=== PATIENT | male | born 1945 | race Caucasian/White ===

== ENCOUNTER 2017-09-16 10:13 | Inpatient (IN) ==
[2017-09-16] MEDS ORDERED: Ipratropium/Albuterol Neb 3 ML IH ONE (10:19)
[2017-09-16 10:42] LABS: Basophils % 0.4 %; Eosinophils % 0.1 %; Hematocrit 40.9 % (37.5-50.1); Hemoglobin 13.6 g/dL (12.9-16.9); Immature Granulocytes % 0.3 % (0-4); Lymphocytes % 13.4 %; Mean Corpuscular HGB Conc 33.3 g/dL (31.6-35.5); Mean Corpuscular Hemoglobin 29.4 pg (28.0-33.3); Mean Corpuscular Volume 88.3 fL (83.0-100.0); Mean Platelet Volume 8.8 fL (9.4-12.4); Monocytes # 0.9 K/mcL (0.0-1.3); Monocytes % 12.2 %; Neutrophils # 5.4 K/mcL (1.6-8.9); Platelet Count 212 K/mcL (140-400); Red Blood Count 4.63 M/mcL (4.19-5.50); Red Cell Distribution Width 13.1 % (11.5-14.5); Segmented Neutrophils % 73.6 %
[2017-09-16 10:58] LABS: BUN/Creatinine Ratio 11 (6-26); Blood Urea Nitrogen 15 mg/dL (8-23); Calcium 8.7 mg/dL (8.6-10.3); Carbon Dioxide 25 mEq/L (23-29); Chloride 99 mEq/L (98-107); Glucose 90 mg/dL (70-105); Osmolality,Calculated 268 (280-300); Sodium 129 mEq/L (136-145); eGFR For African Americans > 60 (> 60); eGFR For Non-African Americans 50 (> 60)
[2017-09-16] MEDS ORDERED: methylPREDNISolone 125 MG/2 ML VIAL IVP ONE (11:42)
--- NOTE | 2017-09-16 11:42 | Emergency Department Note ---
Disposition Clinical Impression: Pulmonary vascular congestion, Hypoxia, Elevated troponin, Hyponatremia Disposition: Admitted As Inpatient Condition: Good Referrals: Constantino Napier MD [Primary Care Provider] - Forms: ED Satisfaction Letter SOB HPI - General Chief Complaint: ED Shortness of Breath/Dyspnea Stated Complaint: Weakness,SOB Time Seen by Provider: 09/16/17 10:16 Source: EMS Limitations: no limitations Nursing Notes Reviewed: Yes Vital Signs Reviewed: Yes - History of Present Illness Patient presents for evaluation of cough, shortness of breath and diaphoresis. Patient has reported cough 2 weeks. No fevers or chills. Patient had an episode today where he became diaphoretic. His initial pulse ox was 91%. Does not have COPD or other previous pulmonary history. Does not wear home oxygen. Presents to the ER complaining of cough that has been nonproductive in nature. His initial pulse ox was again 91% and the patient was placed on 3 L nasal cannula with improvement to 97%. Patient has wheezing diffusely. Breathing treatments ordered. Patient will undergo further investigation of possible pneumonia as well as other possible etiologies of wheezing and shortness of breath. Currently does not smoke but does have a significant smoking history. - Related Data Home Medications Medication Instructions Recorded Confirmed Aspirin 81 mg PO DAILY 12/26/16 12/26/16 Carbidopa/Levodopa [Carbidopa-Levo 1 each PO TID 12/26/16 12/26/16 ER 25-100 Tab] Lisinopril [Zestril] 40 mg PO DAILY 12/26/16 12/26/16 Omeprazole [PriLOSEC] 20 mg PO DAILY 12/26/16 12/26/16 Tamsulosin [Flomax] 0.4 mg PO DAILY 12/26/16 12/26/16 Tizanidine HCl 2 mg PO BID 12/26/16 12/26/16 Cyanocobalamin (B-12) [Vitamin B12] 1,000 mcg IM QMONTH 09/16/17 09/16/17 Ferrous Sulfate [Iron] 325 mg PO DAILY 09/16/17 09/16/17 Warfarin [Coumadin] 2 mg PO QPM 09/16/17 09/16/17 Previous Rx's Medication Instructions Recorded LORazepam [Ativan] 1 mg PO HS #14 tablet 12/26/16 Allergies Allergy/AdvReac Type Severity Reaction Status Date / Time No Known Allergies Allergy Verified 07/01/16 23:57 Constitutional: Reports: weakness, other (diaphoresis). Denies: fever, chills Cardiovascular: Reports: dyspnea on exertion. Denies: chest pain Respiratory: Reports: cough, wheezes Gastrointestinal: Denies: abdominal pain, nausea, vomiting Integumentary: Denies: rash, abrasion, lesions Endocrine: Reports: fatigue Past Medical History - Past Medical History Medical history: Reports: arthritis, GERD, hypertension, other Surgical history: Reports: non-contributory Psychiatric history: Reports: no psych history - Social History Smoking Status: Former smoker Alcohol use: Reports: none Drug use: Reports: none Physical Exam General: Mild tachypnea Head: Normocephalic Atraumatic Eyes: PERRL, EOMI ENT: Airway patent, no stridor Neck: supple, no meningismus Chest: Wheezing bilaterally Cardiac: Regular rate and rhythm, no murmurs, rubs or gallops Abdomen: soft, nontender, nondistended; no guarding, rebound, or tenderness to percussion Musculoskeletal: Calves symmetric, nontender, no palpable cord Skin: No rash, normal skin tone Neuro: Alert and Oriented to person, place, but not time. Patient has some mild facial droop that is chronic. Reported weakness of the right upper extremity that is chronic however 5 out of 5 strength throughout all extremities. - General Limitations: no limitations General appearance: alert, in no apparent distress Course - Reevaluation(s) Reevaluation #1: Patient with minimal improvement after DuoNeb's. Patient will be given steroids for concern for possible COPD. Patient will need further monitoring of his hypoxia, pulmonary vascular congestion, hyponatremia with admission to the hospitalist service. - Consultations Consultation #1: Discussed with Dr. Paredes. Pt accepted for admission. Vital Signs Temperature 99.5 F 09/16/17 10:17 Pulse Rate 79 09/16/17 10:17 Respiratory Rate 20 09/16/17 10:17 Blood Pressure 108/72 09/16/17 10:17 O2 Sat by Pulse Oximetry 96 09/16/17 10:17 Temperature 99.5 F 09/16/17 10:17 Pulse Rate 86 09/16/17 12:09 Respiratory Rate 20 09/16/17 12:09 Blood Pressure 117/62 09/16/17 12:09 O2 Sat by Pulse Oximetry 94 09/16/17 12:09 Oxygen Delivery Oxygen Delivery Nasal Cannula Shortness of Breath/Dyspnea - Lab Data Result diagrams: 09/16/17 10:31 09/16/17 10:31 Lab Results 09/16/17 09/16/17 09/16/17 Range/Units 10:31 10:31 10:31 WBC 7.3 (4.3-11.1) K/mcL RBC 4.63 (4.19-5.50) M/mcL Hgb 13.6 (12.9-16.9) g/dL Hct 40.9 (37.5-50.1) % MCV 88.3 (83.0-100.0) fL MCH 29.4 (28.0-33.3) pg MCHC 33.3 (31.6-35.5) g/dL RDW 13.1 (11.5-14.5) % Plt Count 212 (140-400) K/mcL MPV 8.8 L (9.4-12.4) fL Immature Gran % 0.3 (0-4) % Seg Neutrophils % 73.6 % Lymphocytes % 13.4 % Monocytes % 12.2 % Eosinophils % 0.1 % Basophils % 0.4 % Neutrophils # 5.4 (1.6-8.9) K/mcL Lymphocytes # 1.0 (0.6-4.6) K/mcL Monocytes # 0.9 (0.0-1.3) K/mcL Eosinophils # 0.0 (0.0-0.6) K/mcL Basophils # 0.0 (0.0-0.2) K/mcL Sodium 129 L (136-145) mEq/L Potassium 4.0 (3.5-5.1) mEq/L Chloride 99 (98-107) mEq/L Carbon Dioxide 25 (23-29) mEq/L BUN 15 (8-23) mg/dL Creatinine 1.40 H (0.70-1.30) mg/dL Est GFR ( Amer) > 60 (> 60) Est GFR (Non-Af Amer) 50 L (> 60) BUN/Creatinine Ratio 11 (6-26) Glucose 90 (70-105) mg/dL Calculated Osmolality 268 L (280-300) Lactic Acid 1.0 (0.5-2.2) mmol/L Calcium 8.7 (8.6-10.3) mg/dL Troponin I (< 0.04) ng/mL B-Natriuretic Peptide (Less than 100) pg/mL 09/16/17 09/16/17 Range/Units 10:31 10:31 WBC (4.3-11.1) K/mcL RBC (4.19-5.50) M/mcL Hgb (12.9-16.9) g/dL Hct (37.5-50.1) % MCV (83.0-100.0) fL MCH (28.0-33.3) pg MCHC (31.6-35.5) g/dL RDW (11.5-14.5) % Plt Count (140-400) K/mcL MPV (9.4-12.4) fL Immature Gran % (0-4) % Seg Neutrophils % % Lymphocytes % % Monocytes % % Eosinophils % % Basophils % % Neutrophils # (1.6-8.9) K/mcL Lymphocytes # (0.6-4.6) K/mcL Monocytes # (0.0-1.3) K/mcL Eosinophils # (0.0-0.6) K/mcL Basophils # (0.0-0.2) K/mcL Sodium (136-145) mEq/L Potassium (3.5-5.1) mEq/L Chloride (98-107) mEq/L Carbon Dioxide (23-29) mEq/L BUN (8-23) mg/dL Creatinine (0.70-1.30) mg/dL Est GFR ( Amer) (> 60) Est GFR (Non-Af Amer) (> 60) BUN/Creatinine Ratio (6-26) Glucose (70-105) mg/dL Calculated Osmolality (280-300) Lactic Acid (0.5-2.2) mmol/L Calcium (8.6-10.3) mg/dL Troponin I 0.04 H* (< 0.04) ng/mL B-Natriuretic Peptide 140 H (Less than 100) pg/mL
--- NOTE | 2017-09-16 13:03 | Emergency Department Note ---
START Narrative - START START: I examined this patient and my medical decision-making was reviewed with the Resident Physician. I agree with the documented findings, disposition and treatment plan as described except to the extent set forth below. 72 year old male presnt to the ED from [place] for diaphoresis and altered mental status. At baseline he has slurred speech and right sided defecits from a brain injury. [place] has an elevated troponin and is hyponatremic with worsening kidney failure. WE will admit to medicine.
[2017-09-16 13:09] LABS: VBG HCO3 24 mEq/L (21-27); VBG PCO2 40 mmHg (41-51); VBG PH 7.38 pH Units (7.32-7.42); VBG PO2 68 mmHg (25-50)
[2017-09-16] MEDS ORDERED: Acetaminophen 325 MG TABLET PO PRN (15:12)
[2017-09-16] MEDS ORDERED: *HR* HYDROcodone/Acet 5/325 mg TABLET PO PRN (15:12)
[2017-09-16] MEDS ORDERED: Naloxone 0.4 MG/ML INJ IVP PRN (15:12)
[2017-09-16] MEDS ORDERED: Ondansetron 4 MG/2 ML VIAL IVP PRN (15:12)
--- NOTE | 2017-09-16 15:38 | Internal Med History&Physical ---
Date of Encounter: 09/16/17 Time of Encounter: 14:30 Assessment and Plan (1) SOB (shortness of breath) Current visit: Yes Status: Acute Acute SOB/dyspnea that pt. reports become worse over the past 1-2 days. Pt. denies hx of COPD or CHF. BNP 140 on admission. Diminished breath sounds on auscultation. Differential dx acute exacerbation of COPD versus CHF. Echocardiogram ordered. Continuous cardiac telemetry. Supplemental O2 w/ titration and SpO2 monitoring. DuoNebs Q6 scheduled. Solu-Medrol 40 mg every 8. Pt. discussed w/Dr. Paredes who agrees w/plan of care. Pt. is at high risk for further morbidity based on current sx, elevated troponin, AMS, and respiratory distress. Inpatient. (2) Weakness Current visit: Yes Status: Acute Pt. presents w/right-sided weakness on RUE and RLE which he states has been present for some time. Pt. is altered during exam and has difficulty remembering facts/details. On exam, pt. has right-sided droop at mouth and right pronator drift. Concern is for possible infarct/CVA. Stat MRI of head/ brain ordered. NIHSS scale. Neuro checks Q2HR. Will hold pts. Coumadin until MRI results are known to r/o intracranial bleed. Dysphagia screen and aspiration precautions. Falls/safety precautions. NPO for now until dysphagia screen passed. Will consider neuro consult based on MRI results. (3) Elevated troponin Current visit: Yes Status: Acute Acutely elevated troponin of 0.04 on admission. Pt. denies chest pain/ palpitations. Pt. denies cardiac hx or hx of angioplasty/stents. Will trend troponins x2. Echocardiogram ordered. Continuous cardiac telemetry. Will consider cardiology consult based on echo/troponin results. (4) Hyponatremia Current visit: Yes Status: Acute Acute hyponatremia w/sodium of 129. IV 0.9 NS 75 mL/HR. Monitor f/u labs for sodium status. (5) GERD (gastroesophageal reflux disease) Current visit: Yes Status: Chronic Hx of chronic GERD. IVP Zofran 4 mg Q8 PRN. Continue patient's Prilosec 20 mg by mouth daily. Qualifiers: Esophagitis presence: esophagitis presence not specified Qualified Code(s) : K21.9 - Gastro-esophageal reflux disease without esophagitis (6) HTN (hypertension) Current visit: Yes Status: Chronic Hx of chronic HTN. Monitor pt. and VS. Continue patient's lisinopril. Qualifiers: Hypertension type: essential hypertension Qualified Code(s): I10 - Essential (primary) hypertension (7) DVT prophylaxis Current visit: Yes Status: Acute Bilateral SCDs on LEs for DVT prophylaxis. Pt. takes Coumadin, but will hold until MRI results to r/o intracranial bleed. Internal Medicine - H&P: HPI Chief complaint: SOB/Dyspnea Admitted From: Emergency Dept Plans for Post Hospital Care: Home History of present illness: Mr. Martini is a 72 year old male with medical hx of arthritis, GERD, and hypertension presents to ED with chief complaint of shortness of breath and dyspnea for the past 1-3 days. Patient is resident at [facility] and has difficulty speaking and exhibits right-sided weakness in upper and lower extremities with right-sided facial droop and pronator drift in right arm. Pt. states these have been present for some time. Patient denies use of oxygen [place] has difficulty remembering facts regarding health history. Patient denies history of CHF or COPD, chest pain, palpitations, recent illness, fever, chills, nausea, vomiting, abdominal pain, headache, diarrhea, constipation, pre- syncope or syncope. Past Med Surg Social Fam HX - Past Medical History Source: patient, old records reviewed Medical history: arthritis, GERD, hypertension, other Psychiatric history: no psych history - Past Surgical History Surgical History: non-contributory - Social History Smoking Status: Former smoker Packs per day: 1.5 PPD - Can't remember when he quit Alcohol use: none Drug use: none Current living situation: Assisted Living Activity Level: Uses cane/walker Recent Out of Country Travel Within the Last 8 Weeks: No Exposure or Possible Exposure to Illness During Travel: No Internal Medicine - H&P: Meds Aspirin 81 mg PO DAILY 12/26/16 [History] Carbidopa/Levodopa [Carbidopa-Levo ER 25-100 Tab] 1 each PO TID 12/26/16 [ History] LORazepam [Ativan] 1 mg PO HS #14 tablet 12/26/16 [Rx] Lisinopril [Zestril] 40 mg PO DAILY 12/26/16 [History] Omeprazole [PriLOSEC] 20 mg PO DAILY 12/26/16 [History] Tamsulosin [Flomax] 0.4 mg PO DAILY 12/26/16 [History] Tizanidine HCl 2 mg PO BID 12/26/16 [History] Cyanocobalamin (B-12) [Vitamin B12] 1,000 mcg IM QMONTH 09/16/17 [History] Ferrous Sulfate [Iron] 325 mg PO DAILY 09/16/17 [History] Warfarin [Coumadin] 2 mg PO QPM 09/16/17 [History] 3 Allergy/AdvReac Type Severity Reaction Status Date / Time No Known Allergies Allergy Verified 07/01/16 23:57 All Systems PM: A 10-system review of systems was performed and is negative for pertinent findings except as documented above in the HPI. - Constitutional Constitutional: as per HPI, weakness (Right-sided) - EENT Eyes: no change in vision, no discharge, no pain, no photophobia Ears: no ear discharge, no ear pain, no tinnitus Nose, mouth and throat: no dysphagia, no nasal discharge, no neck pain, no sore throat - Breasts Breasts: as per HPI - Cardiovascular Cardiovascular ROS IM: as per HPI, dyspnea, dyspnea on exertion, no chest pain, no diaphoresis, no lightheadedness, no palpitations, no syncope - Respiratory Respiratory: as per HPI, dyspnea, dyspnea on exertion - Gastrointestinal Gastrointestinal: no abdominal pain, no diarrhea, no hematemesis, no hematochezia, no melena, no nausea, no vomiting - Genitourinary Genitourinary ROS male: as per HPI - Musculoskeletal Musculoskeletal ROS IM: no numbness, no tingling - Integumentary Integumentary IM: no rash, no unusual bruising - Neurological Neurological ROS: no confusion, no convulsions, no focal weakness, no numbness, no tingling, no tremor(s) - Psychiatric Psychiatric: as per HPI - Endocrine Endocrine IM: as per HPI - Hematologic/Lymphatic Hematologic/Lymphatic: no easy bruising - Allergic/Immunologic Allergic/Immunologic: as per HPI - Constitutional Vitals: Temp Pulse Resp BP Pulse Ox 99.3 F 83 18 112/65 95 09/16/17 13:47 09/16/17 13:47 09/16/17 13:47 09/16/17 13:47 09/16/17 13:47 General appearance: Present: A&O X 1, obese - Head Head exam: Present: atraumatic, normocephalic - Eye Eye exam: Present: PERRL, conjuntiva pink, sclera anicteric Pupils: Present: PERRL - ENT ENT exam: Present: normal exam - Neck Neck exam general surgery: Present: normal inspection, supple, trachea midline. Absent: lymphadenopathy - Respiratory Respiratory exam: Present: decreased breath sounds - Cardiovascular Cardiovascular exam: Present: RRR, +S1, +S2. Absent: diastolic murmur, gallop, rubs, systolic murmur - GI/Abdominal GI/Abdominal exam: Present: normal bowel sounds, soft, no peritoneal signs. Absent: distended, tenderness - Rectal Rectal exam: Present: deferred - Additional comments: exam deferred. - Extremities Exam Extremities exam: Present: warm, radial pulses palpable and symmetrical. Absent : calf tenderness, cyanotic, pedal edema - Neurological Exam Neurological exam: Present: altered - Psychiatric Psychiatric exam: Present: flat affect - Skin Skin exam: Present: dry, intact Internal Med - H&P Results - Labs CBC & Chem 7: 09/16/17 10:31 09/16/17 10:31 - ABG Interpretation ABG results: 09/16/17 13:05 VBG pH 7.38 VBG pCO2 40 L VBG pO2 68 H VBG HCO3 24 - EKG Data EKG shows normal: sinus rhythm - EKG Data Prior EKG available for review: yes When compared to previous EKG: there is no significant change EKG comments: 09/16/17 15:42 EKG dated 07/01/16 shows sinus rhythm with short NV interval. EKG dated 09/16/17 shows sinus rhythm with moderate ST depression. - Diagnostic Studies Chest x-ray Additional comments: Impressions Chest X-Ray 09/16/17 10:19 IMPRESSION: Cardiomegaly and possible mild interstitial pulmonary edema. D/ / 09/16/2017 10:37:48 Cecil Serrano MD / shant Interpreting Provider: Cecil Serrano MD
[2017-09-16] MEDS: Ipratropium/Albuterol Neb 3 ML IH SCH ×2 (15:48→21:46)
[2017-09-16] MEDS ORDERED: 0.9 % Sodium Chloride 1,000 ML IVC SCH ×2 (16:00→16:29)
[2017-09-16] MEDS: tiZANidine 4 MG TABLET PO SCH (21:37)
[2017-09-16] MEDS: *HR* LORazepam 1 MG TABLET PO SCH (21:37)
[2017-09-16] MEDS: CARBIDOPA PO SCH (22:02)
[2017-09-16] MEDS: LEVODOPA PO SCH (22:02)
[2017-09-16] MEDS: Levofloxacin 500 MG/100 ML 500 MG/100 ML BAG IVPB SCH (23:11)
[2017-09-16] MEDS: MethylPREDNISolone 40 MG/ML VIAL IVP SCH (23:17)
[2017-09-16] MEDS ORDERED: Benzonatate 100 MG CAPSULE PO PRN (23:27)
[2017-09-17 01:00] LABS: Adenovirus Not Detected (Not Detect); Coronavirus 229E Not Detected (Not Detect); Coronavirus HKU1 Not Detected (Not Detect); Coronavirus NL63 Not Detected (Not Detect); Coronavirus OC43 Not Detected (Not Detect); Human Metapneumovirus Not Detected (Not Detect); Human Rhinovirus/Enterovirus Not Detected (Not Detect)
[2017-09-17 01:01] LABS: Bordetella Pertussis Not Detected (Not Detect); Chlamydophila pneumoniae Not Detected (Not Detect); Influenza A Subtype 2009 H1 Not Detected (Not Detect); Influenza A Untypeable Not Detected (Not Detect); Influenza B Not Detected (Not Detect); Mycoplasma pneumoniae Not Detected (Not Detect); Parainfluenza Virus 1 Not Detected (Not Detect); Parainfluenza Virus 2 Not Detected (Not Detect); Parainfluenza Virus 3 Not Detected (Not Detect); Parainfluenza Virus 4 Not Detected (Not Detect); Respiratory Syncytial Virus Not Detected (Not Detect)
[2017-09-17 01:05] LABS: Basophils % 0.1 %; Eosinophils % 0.1 %; Hematocrit 45.7 % (37.5-50.1); Hemoglobin 14.7 g/dL (12.9-16.9); Immature Granulocytes % 0.5 % (0-4); Lymphocytes # 0.5 K/mcL (0.6-4.6); Lymphocytes % 6.2 %; Mean Corpuscular HGB Conc 32.2 g/dL (31.6-35.5); Mean Corpuscular Hemoglobin 29.1 pg (28.0-33.3); Mean Corpuscular Volume 90.5 fL (83.0-100.0); Mean Platelet Volume 8.9 fL (9.4-12.4); Monocytes # 0.2 K/mcL (0.0-1.3); Neutrophils # 6.8 K/mcL (1.6-8.9); Platelet Count 234 K/mcL (140-400); Red Blood Count 5.05 M/mcL (4.19-5.50); Red Cell Distribution Width 13.2 % (11.5-14.5); Segmented Neutrophils % 91.1 %
[2017-09-17 01:10] LABS: Prothrombin Time 22.1 Seconds (9.4-12.1)
[2017-09-17 01:12] LABS: Hemoglobin A1C 5.2 %
[2017-09-17 01:13] LABS: Activated Partial Thrombo Time 41.1 Seconds (26.0-36.0)
[2017-09-17 02:11] LABS: Alanine Aminotransferase 20 Units/L (7-52); Albumin/Globulin Ratio 0.8 (1.1-2.2); Alkaline Phosphatase 120 Units/L (34-104); Aspartate Amino Transferase 24 Units/L (13-39); BUN/Creatinine Ratio 13 (6-26); Bilirubin,Total 0.4 mg/dL (0.3-1.0); Blood Urea Nitrogen 17 mg/dL (8-23); Calcium 9.2 mg/dL (8.6-10.3); Carbon Dioxide 24 mEq/L (23-29); Chloride 99 mEq/L (98-107); Chol/HDL Ratio 4.2 (0-4.9); Cholesterol 160 mg/dL (< 200); Globulin 4.9 g/dL (2.4-3.5); Glucose 171 mg/dL (70-105); HDL Cholesterol 38 mg/dL (40-59); LDL Cholesterol,Calculated 109 mg/dL (0-99); Magnesium 2.2 mg/dL (1.6-2.6); Osmolality,Calculated 290 (280-300); Potassium 4.1 mEq/L (3.5-5.1); Sodium 137 mEq/L (136-145); Total Protein 8.9 g/dL (6.4-8.9); Triglycerides 63 mg/dL (< 150); eGFR For African Americans > 60 (> 60); eGFR For Non-African Americans 55 (> 60)
[2017-09-17] MEDS: Ipratropium/Albuterol Neb 3 ML IH SCH ×4 (04:15→22:48)
[2017-09-17] MEDS: tiZANidine 4 MG TABLET PO SCH ×2 (08:56→21:22)
[2017-09-17] MEDS: Aspirin 81 MG TAB.CHEW PO SCH (08:56)
[2017-09-17] MEDS: Lisinopril 20 MG TABLET PO SCH (08:56)
[2017-09-17] MEDS: LEVODOPA PO SCH ×3 (09:00→21:20)
[2017-09-17] MEDS: CARBIDOPA PO SCH ×3 (09:00→21:20)
[2017-09-17] MEDS: MethylPREDNISolone 40 MG/ML VIAL IVP SCH ×3 (09:00→23:24)
--- NOTE | 2017-09-17 16:00 | Internal Med Progress Note ---
Date of Encounter: 09/17/17 Time of Encounter: 13:00 - Assessment and plan (1) Acute respiratory failure with hypoxia Current Visit: Yes Status: Acute Assessment and plan: Most likely etiology is due to influenza .Patient as influenza a H3 positive. Start Tamiflu given the symptom onset was within last 48 hours prior to admission. I will continue duonebs and IP steroids at this point and monitor clinically. Patient does not use oxygen at home and currently is needing anywhere from 1 to 3 L-discussed with nursing staff to continue to clean him as tolerated (2) Elevated troponin Current Visit: Yes Status: Acute Assessment and plan: Serial cardiac enzymes trended down. Patient denies any chest pain. We will continue to monitor closely. At this point I doubt acute coronary syndrome as a reason for presenting complaint (3) GERD (gastroesophageal reflux disease) Current Visit: Yes Status: Chronic Assessment and plan: Continue PPI Qualifiers: Esophagitis presence: esophagitis presence not specified Qualified Code(s) : K21.9 - Gastro-esophageal reflux disease without esophagitis (4) HTN (hypertension) Current Visit: Yes Status: Chronic Assessment and plan: Stable. Continue to monitor Qualifiers: Hypertension type: essential hypertension Qualified Code(s): I10 - Essential (primary) hypertension (5) DVT prophylaxis Current Visit: Yes Status: Acute Assessment and plan: Subcutaneous prophylaxis already in place - Time Spent With Patient 25 - 35 minutes - Subjective Interval history: Patient states that shortness of breath is improving since yesterday. He denies any new fevers, chills. He does state that any ambulation does make him very extremely winded - Constitutional Vitals: Temp Pulse Resp BP Pulse Ox 98.7 F 70 18 137/70 97 09/17/17 11:19 09/17/17 11:19 09/17/17 11:28 09/17/17 11:19 09/17/17 11:28 General appearance: Present: A&O X 1, obese Exam: General , Alert , moderate distress, confused HEENT- PERRLA. EOMI CVS- S1S2 N, No Murmurs, Rubs, gallops, No JVD RS- diffuse scattered rhonchi heard bilaterally Abdomen- Soft NT ND, bowel sounds heard across all 4 quadrants Neuro- No Focal deficits appreciated, CN 2-12 intact, Motors- power 5/5 UE, 5/5 LE Bilaterally, Sensations intact Internal Medicine: Result - Labs CBC & Chem 7: 09/17/17 00:31 09/17/17 00:31 Labs: Short CBC 09/17/17 Range/Units 00:31 WBC 7.5 (4.3-11.1) K/mcL Hgb 14.7 (12.9-16.9) g/dL Hct 45.7 (37.5-50.1) % Plt Count 234 (140-400) K/mcL Neutrophils # 6.8 (1.6-8.9) K/mcL BMP 09/17/17 00:31 Sodium 137 Potassium 4.1 Chloride 99 Carbon Dioxide 24 BUN 17 Creatinine 1.28 Glucose 171 H Calcium 9.2 Cardiac Enzymes 09/16/17 09/17/17 Range/Units 17:38 00:31 Troponin I < 0.03 < 0.03 (< 0.04) ng/mL Liver Function 09/17/17 Range/Units 00:31 Total Bilirubin 0.4 (0.3-1.0) mg/dL AST 24 (13-39) Units/L ALT 20 (7-52) Units/L Alkaline Phosphatase 120 H (34-104) Units/L Albumin 4.0 (3.5-5.7) g/dL - ABG Interpretation ABG results: PT/INR, D-dimer PT 22.1 Seconds (9.4-12.1) H 09/17/17 00:31 Consult Discharge Plan - Plan Referrals: Constantino Napier MD [Primary Care Provider] -
--- NOTE | 2017-09-17 16:32 | Electrocardiograph Report ---
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
[2017-09-17] MEDS: *HR* Warfarin 2 MG TABLET PO SCH (17:10)
[2017-09-17] MEDS: Levofloxacin 500 MG/100 ML 500 MG/100 ML BAG IVPB SCH (17:10)
[2017-09-17] MEDS ORDERED: Warfarin perPT PO PRN (18:00)
[2017-09-17] MEDS: *HR* LORazepam 1 MG TABLET PO SCH (21:22)
[2017-09-18] MEDS: Ipratropium/Albuterol Neb 3 ML IH SCH ×4 (03:39→21:58)
[2017-09-18 06:06] LABS: Hematocrit 40.1 % (37.5-50.1); Immature Granulocytes % 0.6 % (0-4); Lymphocytes # 0.6 K/mcL (0.6-4.6); Lymphocytes % 5.4 %; Mean Corpuscular HGB Conc 32.7 g/dL (31.6-35.5); Mean Corpuscular Hemoglobin 29.2 pg (28.0-33.3); Mean Corpuscular Volume 89.5 fL (83.0-100.0); Mean Platelet Volume 9.4 fL (9.4-12.4); Monocytes # 0.4 K/mcL (0.0-1.3); Neutrophils # 9.5 K/mcL (1.6-8.9); Platelet Count 234 K/mcL (140-400); Red Blood Count 4.48 M/mcL (4.19-5.50); Red Cell Distribution Width 13.3 % (11.5-14.5)
[2017-09-18 06:12] LABS: Alanine Aminotransferase 17 Units/L (7-52); Albumin 3.3 g/dL (3.5-5.7); Albumin/Globulin Ratio 0.8 (1.1-2.2); Alkaline Phosphatase 92 Units/L (34-104); Aspartate Amino Transferase 20 Units/L (13-39); BUN/Creatinine Ratio 18 (6-26); Bilirubin,Total 0.3 mg/dL (0.3-1.0); Blood Urea Nitrogen 19 mg/dL (8-23); Calcium 8.7 mg/dL (8.6-10.3); Carbon Dioxide 25 mEq/L (23-29); Chloride 104 mEq/L (98-107); Globulin 4.1 g/dL (2.4-3.5); Glucose 147 mg/dL (70-105); Osmolality,Calculated 285 (280-300); Potassium 4.3 mEq/L (3.5-5.1); Sodium 135 mEq/L (136-145); Total Protein 7.4 g/dL (6.4-8.9); eGFR For African Americans > 60 (> 60); eGFR For Non-African Americans > 60 (> 60)
[2017-09-18 06:14] LABS: INR 2.2; Prothrombin Time 24.4 Seconds (9.4-12.1)
[2017-09-18 06:22] LABS: Hemoglobin 13.1 g/dL (12.9-16.9)
--- NOTE | 2017-09-18 08:49 | Internal Med Progress Note ---
Date of Encounter: 09/18/17 Time of Encounter: 08:30 - Assessment and plan (1) Acute respiratory failure with hypoxia Current Visit: Yes Status: Acute Assessment and plan: Acute hypoxic respiratory failure - possibly secondary to Acute Bronchitis and due to Influenza A Continue DuoNeb breathing treatment, IV Solu-Medrol, IV Levaquin, Benzonatate, Tylenol PRN Tamiflu has been started, as the symptom onset was within 48 hours prior to admission Patient does not use O2 at home and is currently requires 1-3 L, will need to wean him off supplemental O2 Chest x-ray - cardiomegaly and possible mild edema Echocardiogram - LVEF 60-65%, mildly dilated LV, mild LV diastolic dysfunction, normal RV structure and function Influenza H3 - positive Troponin < 0.03 BNP - 140 MRI brain - no acute infarct Cardiac telemetry, incentive spirometry, aspiration precautions, intake/output (2) HTN (hypertension) Current Visit: Yes Status: Chronic Assessment and plan: Essential hypertension, controlled, monitor Continue home dose of Lisinopril Qualifiers: Hypertension type: essential hypertension Qualified Code(s): I10 - Essential (primary) hypertension (3) GERD (gastroesophageal reflux disease) Current Visit: Yes Status: Chronic Assessment and plan: Continue Prilosec Qualifiers: Esophagitis presence: esophagitis presence not specified Qualified Code(s) : K21.9 - Gastro-esophageal reflux disease without esophagitis (4) H/O traumatic brain injury Current Visit: Yes Status: Chronic Assessment and plan: H/o Traumatic brain injury more than 50 years ago Patient has chronic left-sided weakness and dysarthria Patient is a long-term resident at [facility] and is wheelchair bound (5) DVT prophylaxis Current Visit: Yes Status: Acute Assessment and plan: Continue home dose of Warfarin INR is therapeutic, pharmacy to dose Warfarin Unclear as to why patient is on Coumadin at home - Time Spent With Patient 25 - 35 minutes - Subjective Interval history: Examined this morning. Patient is awake and alert. Not in any distress. Denies chest pain or shortness of breath. Patient does have dysarthria due to history of traumatic brain injury. Difficult to understand his speech at times. No fever. Hemodynamically stable. Currently on 3 L nasal cannula and O2 sat is around 96%. Continue DuoNeb breathing treatment and IV Solu-Medrol. Patient is also on Tamiflu. Continue IV Levaquin. Coumadin dosing per pharmacy. - Constitutional Vitals: Temp Pulse Resp BP Pulse Ox 98.2 F 66 18 123/71 96 09/18/17 06:41 09/18/17 06:41 09/18/17 03:39 09/18/17 06:41 09/18/17 06:41 General appearance: Present: cooperative, A&O X 2, pleasant, no acute distress, obese, answers questions appropriately Exam: Awake and alert. Patient does have dysarthria due to history of traumatic brain injury. Able to answer questions appropriately, but it is difficult to understand him at times. - Head Head exam: Present: atraumatic - Eye Eye exam: Present: EOMI, PERRL - ENT ENT exam: Present: mucous membranes dry - Respiratory Respiratory exam: Present: rhonchi (Bilateral scattered). Absent: accessory muscle use, chest wall tenderness, rales, respiratory distress, wheezes, tachypnea - Cardiovascular Cardiovascular exam: Present: RRR, +S1, +S2 - GI/Abdominal GI/Abdominal exam: Present: soft. Absent: distended, firm, guarding, tenderness - Extremities Exam Extremities exam: Present: radial pulses palpable and symmetrical. Absent: calf tenderness, cyanotic, pedal edema - Neurological Exam Neurological exam: Present: alert, speech deficit (Dysarthria due to history of traumatic brain injury) Additional comments: Chronic left-sided weakness. Patient is wheelchair bound. History of traumatic brain injury. Able to answer questions appropriately. Internal Medicine: Result - Labs CBC & Chem 7: 09/18/17 05:26 09/18/17 05:26 Labs: Short CBC 09/18/17 Range/Units 05:26 WBC 10.6 (4.3-11.1) K/mcL Hgb 13.1 D (12.9-16.9) g/dL Hct 40.1 (37.5-50.1) % Plt Count 234 (140-400) K/mcL Neutrophils # 9.5 H (1.6-8.9) K/mcL BMP 09/18/17 05:26 Sodium 135 L Potassium 4.3 Chloride 104 Carbon Dioxide 25 BUN 19 Creatinine 1.03 Glucose 147 H Calcium 8.7 Liver Function 09/18/17 Range/Units 05:26 Total Bilirubin 0.3 (0.3-1.0) mg/dL AST 20 (13-39) Units/L ALT 17 (7-52) Units/L Alkaline Phosphatase 92 (34-104) Units/L Albumin 3.3 L (3.5-5.7) g/dL - ABG Interpretation ABG results: PT/INR, D-dimer PT 24.4 Seconds (9.4-12.1) H 09/18/17 05:26 Consult Discharge Plan - Plan Referrals: Constantino Napier MD [Primary Care Provider] -
[2017-09-18] MEDS: tiZANidine 4 MG TABLET PO SCH ×2 (09:06→20:54)
[2017-09-18] MEDS: MethylPREDNISolone 40 MG/ML VIAL IVP SCH ×2 (09:06→18:00)
[2017-09-18] MEDS: Aspirin 81 MG TAB.CHEW PO SCH (09:06)
[2017-09-18] MEDS: LEVODOPA PO SCH ×3 (09:06→20:54)
[2017-09-18] MEDS: Lisinopril 20 MG TABLET PO SCH (09:06)
[2017-09-18] MEDS: CARBIDOPA PO SCH ×3 (09:06→20:54)
[2017-09-18] MEDS: Levofloxacin 500 MG/100 ML 500 MG/100 ML BAG IVPB SCH (18:00)
[2017-09-18] MEDS: *HR* Warfarin 2 MG TABLET PO SCH (18:00)
[2017-09-18] MEDS: *HR* LORazepam 1 MG TABLET PO SCH (20:54)
[2017-09-19] MEDS: MethylPREDNISolone 40 MG/ML VIAL IVP SCH ×2 (00:42→07:46)
[2017-09-19] MEDS: Ipratropium/Albuterol Neb 3 ML IH SCH ×2 (04:35→10:43)
[2017-09-19 05:43] LABS: Basophils % 0.1 %; Hematocrit 39.6 % (37.5-50.1); Hemoglobin 12.9 g/dL (12.9-16.9); Immature Granulocytes % 0.7 % (0-4); Lymphocytes # 0.8 K/mcL (0.6-4.6); Lymphocytes % 9.3 %; Mean Corpuscular HGB Conc 32.6 g/dL (31.6-35.5); Mean Corpuscular Hemoglobin 29.5 pg (28.0-33.3); Mean Corpuscular Volume 90.4 fL (83.0-100.0); Mean Platelet Volume 8.9 fL (9.4-12.4); Monocytes # 0.3 K/mcL (0.0-1.3); Neutrophils # 7.6 K/mcL (1.6-8.9); Platelet Count 206 K/mcL (140-400); Red Blood Count 4.38 M/mcL (4.19-5.50); Red Cell Distribution Width 13.5 % (11.5-14.5); Segmented Neutrophils % 86.9 %
[2017-09-19 06:01] LABS: Alanine Aminotransferase 18 Units/L (7-52); Albumin 3.3 g/dL (3.5-5.7); Albumin/Globulin Ratio 0.8 (1.1-2.2); Alkaline Phosphatase 85 Units/L (34-104); Aspartate Amino Transferase 17 Units/L (13-39); BUN/Creatinine Ratio 21 (6-26); Bilirubin,Total 0.3 mg/dL (0.3-1.0); Blood Urea Nitrogen 20 mg/dL (8-23); Calcium 8.6 mg/dL (8.6-10.3); Carbon Dioxide 26 mEq/L (23-29); Chloride 103 mEq/L (98-107); Glucose 144 mg/dL (70-105); Osmolality,Calculated 283 (280-300); Potassium 4.4 mEq/L (3.5-5.1); Sodium 134 mEq/L (136-145); Total Protein 7.3 g/dL (6.4-8.9); eGFR For African Americans > 60 (> 60); eGFR For Non-African Americans > 60 (> 60)
[2017-09-19] MEDS: Aspirin 81 MG TAB.CHEW PO SCH (07:47)
[2017-09-19] MEDS: tiZANidine 4 MG TABLET PO SCH (07:47)
[2017-09-19] MEDS: Lisinopril 20 MG TABLET PO SCH (07:47)
[2017-09-19] MEDS: LEVODOPA PO SCH (08:06)
[2017-09-19] MEDS: CARBIDOPA PO SCH (08:06)
--- NOTE | 2017-09-19 10:16 | Discharge Summary ---
Date of Encounter: 09/19/17 Time of Encounter: 08:00 - Discharge Diagnosis (1) Acute respiratory failure with hypoxia Priority: Primary Status: Acute Comments: Acute hypoxic respiratory failure - likely secondary to Acute Bronchitis and due to Influenza A - now improved Continue DuoNeb breathing treatment, Prednisone, PO Levaquin, Benzonatate, Tylenol PRN Tamiflu has been started, as the symptom onset was within 48 hours prior to admission - continue for 2 more days at [facility] Patient has now been weaned off supplemental O2, doing well on room air Chest x-ray - cardiomegaly and possible mild edema Echocardiogram - LVEF 60-65%, mildly dilated LV, mild LV diastolic dysfunction, normal RV structure and function Influenza H3 - positive Troponin < 0.03 BNP - 140 MRI brain - no acute infarct Continue incentive spirometry, aspiration precautions, stable for discharge to [facility] today (2) HTN (hypertension) Priority: Primary Status: Chronic Comments: Essential hypertension, controlled, monitor Continue home dose of Lisinopril Qualifiers: Hypertension type: essential hypertension Qualified Code(s): I10 - Essential (primary) hypertension (3) GERD (gastroesophageal reflux disease) Priority: Primary Status: Chronic Comments: Continue Prilosec Qualifiers: Esophagitis presence: esophagitis presence not specified Qualified Code(s) : K21.9 - Gastro-esophageal reflux disease without esophagitis (4) H/O traumatic brain injury Priority: Primary Status: Chronic Comments: H/o Traumatic brain injury more than 50 years ago Patient has chronic left-sided weakness and dysarthria Patient is a long-term resident at [facility] and is wheelchair bound - Discharge Medications Prescriptions: Ipratropium/Albuterol Neb [Duoneb] 3 ml IH [id number] #30 inhsol Benzonatate [Tessalon] 200 mg PO TID PRN #10 capsule PRN Reason: Cough levoFLOXacin [Levaquin] 500 mg PO DAILY 3 Days #3 tablet LORazepam [Ativan] 1 mg PO HS #7 tablet Oseltamivir [Tamiflu] 75 mg PO BID 2 Days #5 capsule predniSONE [PredniSONE] 20 mg PO DAILY #10 tablet Tizanidine HCl 2 mg PO BID #10 tablet Home Medications: Aspirin 81 mg PO DAILY 12/26/16 [History] Carbidopa/Levodopa [Carbidopa-Levo ER 25-100 Tab] 1 each PO TID 12/26/16 [ History] Lisinopril [Zestril] 40 mg PO DAILY 12/26/16 [History] Omeprazole [PriLOSEC] 20 mg PO DAILY 12/26/16 [History] Tamsulosin [Flomax] 0.4 mg PO DAILY 12/26/16 [History] Cyanocobalamin (B-12) [Vitamin B12] 1,000 mcg IM QMONTH 09/16/17 [History] Ferrous Sulfate [Iron] 325 mg PO DAILY 09/16/17 [History] Warfarin [Coumadin] 2 mg PO QPM 09/16/17 [History] Benzonatate [Tessalon] 200 mg PO TID PRN #10 capsule 09/19/17 [Rx] Ipratropium/Albuterol Neb [Duoneb] 3 ml IH [id number] #30 inhsol 09/19/17 [Rx] LORazepam [Ativan] 1 mg PO HS #7 tablet 09/19/17 [Rx] Oseltamivir [Tamiflu] 75 mg PO BID 2 Days #5 capsule 09/19/17 [Rx] Tizanidine HCl 2 mg PO BID #10 tablet 09/19/17 [Rx] levoFLOXacin [Levaquin] 500 mg PO DAILY 3 Days #3 tablet 09/19/17 [Rx] predniSONE [PredniSONE] 20 mg PO DAILY #10 tablet 09/19/17 [Rx] Allergies/Adverse Reactions: 3 Allergy/AdvReac Type Severity Reaction Status Date / Time No Known Allergies Allergy Verified 07/01/16 23:57 Procedures/tests Complete & Pending: Procedures Performed prior 72 hours Category Date Time Status EKG [ECG 12 lead ECG] [ECG] Routine Y 09/17/17 07:30 Ordered Date of admission: 09/16/17 15:52 Primary care physician: Constantino Napier Consults: 09/17/17 07:44 Consult for Pharmacy Education [CONS] Routine Reason for Consult: warfarin dosing Call Completed: No Anticipated date of discharge: 09/19/17 - Patient Status Disposition: Transfer SNF Condition: Good Functional capacity at discharge: wheelchair bound Overall status at discharge: patient is back to baseline - Discharge Instructions Follow Up With: Constantino Napier MD [Primary Care Provider] - - Diet and Activity Activity: as per physical therapy, increase activity as tolerated, resume usual activities as tolerated Diet: advance to your usual diet, low fat, low cholesterol Hospital course: Mr. Martini is a 72 year old male with past medical history of arthritis, GERD and hypertension. Patient presents to ED with complaints of shortness of breath. Patient admitted for acute hypoxic respiratory failure likely secondary to acute bronchitis and also due to influenza A. Patient was started on DuoNeb breathing treatment and IV Solu-Medrol. He was also on empiric IV Levaquin. We continued benzonatate as needed and also Tylenol as needed. Patient also required supplemental O2 via nasal cannula. He has now been weaned off supplemental O2 and is doing well on room air. Patient did have some wheezing which is now improved. We continued his home medications. Patient was also on DVT prophylaxis. Patient is currently tolerating her diet well. He is wheelchair-bound due to history of traumatic brain injury. Patient does have dysarthria because of traumatic brain injury. Patient seems back to baseline at this time. No other acute events or complications during his stay. Patient has been explained about his condition and plan of care in detail. He understood and agreed. No unanswered questions. Patient was started on Tamiflu and this will be continued at the [facility]. He is being discharged with DuoNeb breathing treatment and Levaquin. Advised return is symptoms worsen. Follow-up with PCP. - Time Spent with Patient Total time spent providing and/or coordinating discharge services: Less than 30 minutes - Constitutional Vitals: Temp Pulse Resp BP Pulse Ox 97.4 F L 64 16 138/77 98 09/19/17 07:46 09/19/17 07:46 09/19/17 07:46 09/19/17 07:46 09/19/17 07:46 General appearance: Present: cooperative, A&O X 2, pleasant, no acute distress, obese, answers questions appropriately - Head Head exam: Present: atraumatic - Eye Eye exam: Present: EOMI - ENT ENT exam: Present: mucous membranes dry - Respiratory Respiratory exam: Present: wheezes (Minimal bibasal). Absent: accessory muscle use, chest wall tenderness, rales, respiratory distress, rhonchi, tachypnea - Cardiovascular Cardiovascular exam: Present: RRR, +S1, +S2 - GI/Abdominal GI/Abdominal exam: Present: soft. Absent: distended, firm, guarding, tenderness - Extremities Exam Extremities exam: Present: radial pulses palpable and symmetrical. Absent: calf tenderness, cyanotic, pedal edema - Neurological Exam Neurological exam: Present: alert, speech deficit (Dysarthria due to history of traumatic brain injury) Additional comments: Chronic left-sided weakness. Patient is wheelchair bound. History of traumatic brain injury. Able to answer questions appropriately.
--- NOTE | 2017-09-19 10:38 | Physician Discharge Referral ---
ExtendedCare Referral Info Provider in Charge after Transfer: PCP Institutional Level of Care: Skilled - Diagnosis (1) Acute respiratory failure with hypoxia Priority: Primary Status: Acute (2) HTN (hypertension) Priority: Primary Status: Chronic (3) GERD (gastroesophageal reflux disease) Priority: Primary Status: Chronic (4) H/O traumatic brain injury Priority: Primary Status: Chronic - Transfer Medications Prescriptions: RX: Ipratropium/Albuterol Neb [Duoneb] 3 ml IH [id number] #30 inhsol RX: Benzonatate [Tessalon] 200 mg PO TID PRN #10 capsule PRN Reason: Cough levoFLOXacin [Levaquin] 500 mg PO DAILY 3 Days #3 tablet RX: LORazepam [Ativan] 1 mg PO HS #7 tablet RX: Oseltamivir [Tamiflu] 75 mg PO BID 2 Days #5 capsule predniSONE [PredniSONE] 20 mg PO DAILY #10 tablet RX: Tizanidine HCl 2 mg PO BID #10 tablet Home Medications: RX: Aspirin 81 mg PO DAILY 12/26/16 [History] RX: Carbidopa/Levodopa [Carbidopa-Levo ER 25-100 Tab] 1 each PO TID 12/26/16 [ History] RX: Lisinopril [Zestril] 40 mg PO DAILY 12/26/16 [History] RX: Omeprazole [PriLOSEC] 20 mg PO DAILY 12/26/16 [History] RX: Tamsulosin [Flomax] 0.4 mg PO DAILY 12/26/16 [History] RX: Cyanocobalamin (B-12) [Vitamin B12] 1,000 mcg IM QMONTH 09/16/17 [History] RX: Ferrous Sulfate [Iron] 325 mg PO DAILY 09/16/17 [History] RX: Warfarin [Coumadin] 2 mg PO QPM 09/16/17 [History] RX: Benzonatate [Tessalon] 200 mg PO TID PRN #10 capsule 09/19/17 [Rx] RX: Ipratropium/Albuterol Neb [Duoneb] 3 ml IH [id number] #30 inhsol 09/19/17 [Rx] RX: LORazepam [Ativan] 1 mg PO HS #7 tablet 09/19/17 [Rx] RX: Oseltamivir [Tamiflu] 75 mg PO BID 2 Days #5 capsule 09/19/17 [Rx] RX: Tizanidine HCl 2 mg PO BID #10 tablet 09/19/17 [Rx] levoFLOXacin [Levaquin] 500 mg PO DAILY 3 Days #3 tablet 09/19/17 [Rx] predniSONE [PredniSONE] 20 mg PO DAILY #10 tablet 09/19/17 [Rx] Allergies/Adverse Reactions: 3 Allergy/AdvReac Type Severity Reaction Status Date / Time No Known Allergies Allergy Verified 07/01/16 23:57 - Respiratory Orders Smoking Cessation: Smoking cessation has been advised. For more information, call the [place] Tobacco Quit Line at 9-200-WZIG-NOW. - Ancillary Orders May use pressure relief devices daily prn - Advance Directives Code Status: Full Code - Mobility Orders Other (Wheelchair-bound) - Rehabiliation Orders Rehab Potential: Fair Rehab Orders: Evaluation for Physical Therapy, Evaluation for Occupational Therapy Other: Aspiration precautions - Treatments Skin tear care topically daily PRN per policy - Diet Orders Cardiac CERTIFICATION: I certify that the transfer of the above named patient to an Extended Care Facility is necessary for the continuing treatment of the diagnosis listed. The above information is true and accurate reflection of patient's current condition. Confidential - Redisclosure prohibited without a patient's written consent.
[2017-09-19 11:15] VITALS: BP 119/71
--- NOTE | 2017-09-22 15:51 | Electrocardiograph Report ---
[place] [id number] Test Date: 2017-09-19 Pat Name: Dwayne Martini Department: 113 Room: 3B Gender: Director Title: IG : 1945 Requested By: Slim Dubose Order Number: [id number] Reading MD: Mark Lara MD Measurements Intervals [place] Rate: 58 P: 48 KS: 112 QRS: 0 QRSD: 99 T: 13 QT: 402 QTc: 398 Interpretive Statements SINUS BRADYCARDIA WITH SINUS ARRHYTHMIA WITH SHORT [place] INTERVAL Electronically Signed On 09-22-2017 15:50:23 EST by Mark Lara MD
== END 2017-09-19 14:26 | DRG 193 ==
LOC: EMEROO 10:13 → 3BNU 10:13 → SUATTDRO 15:52
PROVIDERS: ADMIT Internal Medicine; ATTEND Family Medicine